=== PATIENT | male | born 1995 ===

== ENCOUNTER 2019-03-11 18:24 | Emergency (ER) | payer SELFPAY ==
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
== END 2019-03-11 19:31 | disposition home or self-care (01) ==
LOC: ERS 18:24
DX: S00.01XA Abrasion of scalp, initial encounter (principal); S40.212A Abrasion of left shoulder, initial encounter; V67.5XXA Driver of heavy transport vehicle injured in collision with fixed or stationary object in traffic accident, initial encounter
CPT/HCPCS: 71045